=== PATIENT | male | born 1935 | race Caucasian/White ===

== ENCOUNTER 2018-03-14 16:06 | Inpatient (IN) ==
[2018-03-14] MEDS ORDERED: ONDANSETRON 4 MG/2 ML VIAL IV STA (17:06)
[2018-03-14] MEDS ORDERED: MECLIZINE 25 MG TABLET PO STA (17:06)
[2018-03-14] MEDS ORDERED: SODIUM CHLORIDE 0.9% 500 ML IV STA (17:06)
[2018-03-14] MEDS ORDERED: methylPREDNISolone SOD SUC 125 MG/2 ML VIAL IV STA (17:11)
[2018-03-14 17:20] LABS: Basophils % 0.2 % (0.0-0.8); Eosinophils % 0.1 % (0.00-10.9); Hematocrit 36.6 VOL% (42.0-52.0); Hemoglobin 11.9 GM/DL (14.0-18.0); Immature Granulocytes % 3.4 %; Immature Granulocytes Absolute 0.39 #; Lymphocytes # 0.9 10*3/uL (1.4-4.0); Lymphocytes % 7.7 % (21.2-54.2); Mean Corpuscular HGB Conc 32.5 GM/DL (32-36); Mean Corpuscular Hemoglobin 28 PG (27-34); Mean Corpuscular Volume 87.1 FL (87-102); Mean Platelet Volume 9.5 FL (9.6-12.0); Monocytes # 0.9 10*3/uL (0.11-0.8); Monocytes % 7.5 % (1.7-12.7); Neutrophils # 9.3 10*3/uL (1.4-7.4); Neutrophils % 81.1 % (38.7-73.9); Platelet Count 399 T/CUMM (130-400); Red Cell Distribution Width 14.7 % (9.3-17.3); White Blood Count 11.5 T/CUMM (4-12)
[2018-03-14 17:36] LABS: Alanine Aminotransferase 25 U/L (16-61); Albumin 2.5 G/DL (3.4-5.0); Alkaline Phosphatase 91 U/L (45-117); Aspartate Amino Transferase 33 U/L (0-37); Blood Urea Nitrogen 39 MG/DL (7-18); Calcium 13.6 MG/DL (8.5-10.1); Glucose 111 MG/DL (74-106); Osmolality,Calculated 266.1 MOS/KG (273-304); Potassium 4.9 MMOL/L (3.5-5.1); Sodium 128 MMOL/L (136-145); Total Protein 6.6 G/DL (6.4-8.3)
[2018-03-14 18:05] LABS: Apearance,Urine Slightly Hazy (Clear); Bilirubin,Urine Negative (Negative); Blood, Urine Negative (Negative); Glucose,Urine (UA) 50 mg/dL (Negative); Hyaline Casts,Urine 5 /LPF (0-3); Ketones,Urine Negative (Negative); Mucus,Urine Occasional /LPF (Occasional); Nitrite,Urine Negative (Negative); Protein,Urine 100 MG/DL; RBC,Urine 9 /HPF (0-4); Squamous Epithelial Cell,Urine Occasional /HPF (0-10); Urine Color Yellow (Yellow); Urine Specific Gravity 1.012 (1.001-1.035); Urine Urobilinogen < 2.0 EU/DL (0.2-1.0); WBC,Urine 12 /HPF (0-6)
[2018-03-14 18:32] LABS: Sedimentation Rate-Westergren 51 MM/HR (0-20)
[2018-03-14] MEDS ORDERED: ACETAMINOPHEN 325 MG TABLET PO PRN (19:57)
[2018-03-14] MEDS: SODIUM CHLORIDE 0.9% 1,000 ML IV SCH (21:13)
[2018-03-14] MEDS: ASPIRIN EC 81 MG TABLET PO SCH (21:13)
[2018-03-14] MEDS: predniSONE 1 MG TABLET PO SCH (21:14)
[2018-03-14] MEDS: ENOXAPARIN 40 MG/0.4 ML SYRINGE SUBCUT SCH (21:14)
[2018-03-15 04:25] LABS: Basophils % 0.1 % (0.0-0.8); Hematocrit 34.2 VOL% (42.0-52.0); Immature Granulocytes % 2.1 %; Immature Granulocytes Absolute 0.22 #; Lymphocytes # 0.6 10*3/uL (1.4-4.0); Lymphocytes % 5.9 % (21.2-54.2); Mean Corpuscular HGB Conc 32.2 GM/DL (32-36); Mean Corpuscular Hemoglobin 28 PG (27-34); Mean Corpuscular Volume 86.8 FL (87-102); Mean Platelet Volume 9.4 FL (9.6-12.0); Monocytes # 0.3 10*3/uL (0.11-0.8); Monocytes % 2.8 % (1.7-12.7); Neutrophils # 9.2 10*3/uL (1.4-7.4); Neutrophils % 89.1 % (38.7-73.9); Platelet Count 335 T/CUMM (130-400); Red Blood Count 3.94 MC/CUMM (3.8-5.5); Red Cell Distribution Width 14.6 % (9.3-17.3); White Blood Count 10.4 T/CUMM (4-12)
[2018-03-15 04:54] LABS: Calcium 12.1 MG/DL (8.5-10.1); Osmolality,Calculated 271.7 MOS/KG (273-304); Potassium 5.2 MMOL/L (3.5-5.1)
[2018-03-15] MEDS: LEVOTHYROXINE 75 MCG TABLET PO SCH (09:07)
[2018-03-15] MEDS: FINASTERIDE 5 MG TABLET PO SCH (09:07)
[2018-03-15] MEDS: predniSONE 1 MG TABLET PO SCH ×2 (09:07→20:47)
[2018-03-15] MEDS: PANTOPRAZOLE 40 MG TABLET PO SCH (09:07)
[2018-03-15] MEDS: MULTIVITAMIN (OCUVITE) TABLET PO SCH (09:09)
[2018-03-15] MEDS: SODIUM CHLORIDE 0.9% 1,000 ML IV SCH ×3 (11:27→23:50)
[2018-03-15] MEDS ORDERED: ZOLEDRONIC ACID 4 MG in PREMIX 1 EACH IV ONE (14:55)
[2018-03-15] MEDS: ASPIRIN EC 81 MG TABLET PO SCH (20:47)
[2018-03-15] MEDS: BENAZEPRIL 10 MG TABLET PO SCH (20:47)
[2018-03-15] MEDS: amLODIPine 2.5 MG TABLET PO SCH (20:47)
[2018-03-15] MEDS: CIPROFLOXACIN 500 MG TABLET PO SCH (20:48)
[2018-03-15] MEDS: ENOXAPARIN 40 MG/0.4 ML SYRINGE SUBCUT SCH (20:48)
[2018-03-16] MEDS: SODIUM CHLORIDE 0.9% 1,000 ML IV SCH ×4 (04:34→22:27)
[2018-03-16 08:13] LABS: Basophils % 0.1 % (0.0-0.8); Eosinophils % 0.3 % (0.00-10.9); Hematocrit 33.6 VOL% (42.0-52.0); Hemoglobin 11.1 GM/DL (14.0-18.0); Immature Granulocytes % 2.6 %; Immature Granulocytes Absolute 0.24 #; Lymphocytes # 0.6 10*3/uL (1.4-4.0); Lymphocytes % 6.7 % (21.2-54.2); Mean Corpuscular Hemoglobin 29 PG (27-34); Mean Corpuscular Volume 86.8 FL (87-102); Mean Platelet Volume 9.3 FL (9.6-12.0); Monocytes # 0.6 10*3/uL (0.11-0.8); Monocytes % 6.4 % (1.7-12.7); Neutrophils # 7.8 10*3/uL (1.4-7.4); Neutrophils % 83.9 % (38.7-73.9); Platelet Count 326 T/CUMM (130-400); Red Blood Count 3.87 MC/CUMM (3.8-5.5); Red Cell Distribution Width 14.9 % (9.3-17.3); White Blood Count 9.3 T/CUMM (4-12)
[2018-03-16 08:40] LABS: Calcium 10.9 MG/DL (8.5-10.1); Osmolality,Calculated 276.2 MOS/KG (273-304); Potassium 4.6 MMOL/L (3.5-5.1)
[2018-03-16] MEDS: predniSONE 1 MG TABLET PO SCH ×2 (08:41→20:44)
[2018-03-16] MEDS: CIPROFLOXACIN 500 MG TABLET PO SCH ×2 (08:42→20:44)
[2018-03-16] MEDS: MULTIVITAMIN (OCUVITE) TABLET PO SCH (08:42)
[2018-03-16] MEDS: LEVOTHYROXINE 75 MCG TABLET PO SCH (08:42)
[2018-03-16] MEDS: PANTOPRAZOLE 40 MG TABLET PO SCH (08:42)
[2018-03-16] MEDS: FINASTERIDE 5 MG TABLET PO SCH (08:42)
[2018-03-16 10:32] LABS: Parathyroid Hormone Intact 7.7 PG/ML (18.4-80.1)
[2018-03-16] MEDS: BISOPROLOL/HCTZ 5-6.25 MG TABLET PO SCH (16:49)
[2018-03-16] MEDS: ASPIRIN EC 81 MG TABLET PO SCH (20:44)
[2018-03-16] MEDS: amLODIPine 2.5 MG TABLET PO SCH (20:44)
[2018-03-16] MEDS: BENAZEPRIL 10 MG TABLET PO SCH (20:44)
[2018-03-16] MEDS: ENOXAPARIN 40 MG/0.4 ML SYRINGE SUBCUT SCH (20:44)
[2018-03-16] MEDS: POLYETHYLENE GLYCOL POWDER 17 GM PACK PO PRN (22:57)
[2018-03-17] MEDS: SODIUM CHLORIDE 0.9% 1,000 ML IV SCH ×2 (06:32→15:44)
[2018-03-17] MEDS: MULTIVITAMIN (OCUVITE) TABLET PO SCH (09:37)
[2018-03-17] MEDS: CIPROFLOXACIN 500 MG TABLET PO SCH ×2 (09:37→20:52)
[2018-03-17] MEDS: predniSONE 1 MG TABLET PO SCH ×2 (09:38→20:52)
[2018-03-17] MEDS: PANTOPRAZOLE 40 MG TABLET PO SCH (09:39)
[2018-03-17] MEDS: BISOPROLOL/HCTZ 5-6.25 MG TABLET PO SCH (09:39)
[2018-03-17] MEDS: FINASTERIDE 5 MG TABLET PO SCH (09:39)
[2018-03-17] MEDS: LEVOTHYROXINE 75 MCG TABLET PO SCH (09:39)
[2018-03-17 10:43] LABS: Calcium 9.7 MG/DL (8.5-10.1); Osmolality,Calculated 276.2 MOS/KG (273-304); Potassium 4.3 MMOL/L (3.5-5.1)
[2018-03-17] MEDS: ASPIRIN EC 81 MG TABLET PO SCH (20:52)
[2018-03-17] MEDS: amLODIPine 2.5 MG TABLET PO SCH (20:52)
[2018-03-17] MEDS: BENAZEPRIL 10 MG TABLET PO SCH (20:52)
[2018-03-17] MEDS: ENOXAPARIN 40 MG/0.4 ML SYRINGE SUBCUT SCH (20:52)
[2018-03-18] MEDS: SODIUM CHLORIDE 0.9% 1,000 ML IV SCH ×2 (05:12→15:56)
[2018-03-18 06:03] LABS: Osmolality,Calculated 275.2 MOS/KG (273-304); Potassium 4.5 MMOL/L (3.5-5.1)
[2018-03-18 06:55] LABS: Cancer Antigen 19-9 24.5 U/ML (0-37); Carcinoembryonic Antigen 1.4 NG/ML (0.0-5.0)
[2018-03-18] MEDS: BISOPROLOL/HCTZ 5-6.25 MG TABLET PO SCH (13:46)
[2018-03-18] MEDS: FINASTERIDE 5 MG TABLET PO SCH (14:31)
[2018-03-18] MEDS: POLYETHYLENE GLYCOL POWDER 17 GM PACK PO PRN (14:31)
[2018-03-18] MEDS: CIPROFLOXACIN 500 MG TABLET PO SCH ×2 (14:31→20:56)
[2018-03-18] MEDS: PANTOPRAZOLE 40 MG TABLET PO SCH (14:32)
[2018-03-18] MEDS: predniSONE 1 MG TABLET PO SCH ×2 (14:32→20:56)
[2018-03-18] MEDS: LEVOTHYROXINE 75 MCG TABLET PO SCH (14:32)
[2018-03-18] MEDS: MULTIVITAMIN (OCUVITE) TABLET PO SCH (14:32)
[2018-03-18] MEDS: ASPIRIN EC 81 MG TABLET PO SCH (20:56)
[2018-03-18] MEDS: amLODIPine 2.5 MG TABLET PO SCH (20:56)
[2018-03-18] MEDS: BENAZEPRIL 10 MG TABLET PO SCH (20:56)
[2018-03-18] MEDS: ENOXAPARIN 40 MG/0.4 ML SYRINGE SUBCUT SCH (20:58)
[2018-03-19] MEDS: SODIUM CHLORIDE 0.9% 1,000 ML IV SCH ×2 (03:48→10:30)
[2018-03-19] MEDS: ALBUTEROL/IPRATROPIUM 3 ML NEB RESP TX PRN ×3 (06:42→20:20)
[2018-03-19] MEDS ORDERED: BISACODYL 10 MG SUPP RECTAL ONE (07:59)
[2018-03-19] MEDS: MULTIVITAMIN (OCUVITE) TABLET PO SCH (10:10)
[2018-03-19] MEDS: POLYETHYLENE GLYCOL POWDER 17 GM PACK PO PRN (10:10)
[2018-03-19] MEDS: predniSONE 1 MG TABLET PO SCH ×2 (10:10→21:42)
[2018-03-19] MEDS: CIPROFLOXACIN 500 MG TABLET PO SCH ×2 (10:10→21:42)
[2018-03-19] MEDS: LEVOTHYROXINE 75 MCG TABLET PO SCH (10:10)
[2018-03-19] MEDS: PANTOPRAZOLE 40 MG TABLET PO SCH (10:11)
[2018-03-19] MEDS: FINASTERIDE 5 MG TABLET PO SCH (10:11)
[2018-03-19] MEDS: amLODIPine 2.5 MG TABLET PO SCH (21:42)
[2018-03-19] MEDS: ENOXAPARIN 40 MG/0.4 ML SYRINGE SUBCUT SCH (21:42)
[2018-03-19] MEDS: BENAZEPRIL 10 MG TABLET PO SCH (21:42)
[2018-03-19] MEDS: ASPIRIN EC 81 MG TABLET PO SCH (21:42)
[2018-03-20 04:00] LABS: Basophils % 0.3 % (0.0-0.8); Eosinophils % 0.4 % (0.00-10.9); Hematocrit 33.1 VOL% (42.0-52.0); Hemoglobin 10.6 GM/DL (14.0-18.0); Immature Granulocytes Absolute 0.44 #; Lymphocytes # 0.6 10*3/uL (1.4-4.0); Lymphocytes % 5.7 % (21.2-54.2); Mean Corpuscular Hemoglobin 28 PG (27-34); Mean Corpuscular Volume 87.8 FL (87-102); Mean Platelet Volume 9.8 FL (9.6-12.0); Monocytes # 0.7 10*3/uL (0.11-0.8); Monocytes % 6.4 % (1.7-12.7); Neutrophils # 9.2 10*3/uL (1.4-7.4); Neutrophils % 83.2 % (38.7-73.9); Platelet Count 307 T/CUMM (130-400); Red Blood Count 3.77 MC/CUMM (3.8-5.5); Red Cell Distribution Width 15.7 % (9.3-17.3)
[2018-03-20 04:24] LABS: Calcium 8.9 MG/DL (8.5-10.1); Osmolality,Calculated 277.1 MOS/KG (273-304); Potassium 4.6 MMOL/L (3.5-5.1)
[2018-03-20] MEDS: predniSONE 1 MG TABLET PO SCH ×2 (08:51→21:35)
[2018-03-20] MEDS: LEVOTHYROXINE 75 MCG TABLET PO SCH (08:52)
[2018-03-20] MEDS: MULTIVITAMIN (OCUVITE) TABLET PO SCH (08:52)
[2018-03-20] MEDS: FINASTERIDE 5 MG TABLET PO SCH (08:52)
[2018-03-20] MEDS: PANTOPRAZOLE 40 MG TABLET PO SCH (08:52)
[2018-03-20] MEDS: CIPROFLOXACIN 500 MG TABLET PO SCH ×2 (08:52→21:35)
[2018-03-20] MEDS ORDERED: SODIUM CHLORIDE 0.9% 500 ML IV ONE ×2 (14:19→20:00)
[2018-03-20] MEDS: ONDANSETRON 4 MG/2 ML VIAL IV PRN ×2 (16:44→20:14)
[2018-03-20] MEDS: SODIUM CHLORIDE 0.9% 1,000 ML IV SCH (17:35)
[2018-03-20] MEDS: BENAZEPRIL 10 MG TABLET PO SCH (21:35)
[2018-03-20] MEDS: ASPIRIN EC 81 MG TABLET PO SCH (21:35)
[2018-03-20] MEDS: amLODIPine 2.5 MG TABLET PO SCH (21:37)
[2018-03-20] MEDS: ENOXAPARIN 40 MG/0.4 ML SYRINGE SUBCUT SCH (21:37)
[2018-03-21] MEDS: SODIUM CHLORIDE 0.9% 1,000 ML IV SCH ×6 (02:06→22:24)
[2018-03-21] MEDS: ONDANSETRON 4 MG/2 ML VIAL IV PRN ×2 (05:00→09:44)
[2018-03-21] MEDS: MULTIVITAMIN (OCUVITE) TABLET PO SCH (09:44)
[2018-03-21] MEDS: CIPROFLOXACIN 500 MG TABLET PO SCH (09:44)
[2018-03-21] MEDS: LEVOTHYROXINE 75 MCG TABLET PO SCH (09:44)
[2018-03-21] MEDS: predniSONE 1 MG TABLET PO SCH ×2 (09:44→22:23)
[2018-03-21] MEDS: PANTOPRAZOLE 40 MG TABLET PO SCH (09:45)
[2018-03-21] MEDS: FINASTERIDE 5 MG TABLET PO SCH (09:45)
[2018-03-21] MEDS ORDERED: ONDANSETRON 4 MG/2 ML VIAL IV PRN (10:04)
[2018-03-21] MEDS: ALBUTEROL/IPRATROPIUM 3 ML NEB RESP TX PRN (12:05)
[2018-03-21] MEDS ORDERED: SODIUM CHLORIDE 0.9% 1,000 ML IV ONE ×2 (16:23→17:48)
[2018-03-21 17:23] LABS: Lactic Acid 5.4 MMOL/L (0.4-2.0)
[2018-03-21] MEDS ORDERED: SODIUM CHLORIDE 0.9% 2,500 ML IV ONE (17:52)
[2018-03-21] MEDS: HYDROCORTISONE 100 MG VIAL IV SCH (18:24)
[2018-03-21] MEDS: PIPERACILLIN/TAZOBACTAM 3,375 MG in SODIUM CHLORIDE 0.9% 100 ML IV SCH (18:24)
[2018-03-21 21:47] LABS: Lactic Acid 5.5 MMOL/L (0.4-2.0)
[2018-03-21] MEDS: ASPIRIN EC 81 MG TABLET PO SCH (22:22)
[2018-03-21] MEDS: ENOXAPARIN 40 MG/0.4 ML SYRINGE SUBCUT SCH (22:22)
[2018-03-21] MEDS: CIPROFLOXACIN INJ 400 MG in PREMIX 1 EACH IV SCH (23:11)
[2018-03-22 01:17] LABS: Basophils # 0.1 10*3/uL (0.0-0.2); Basophils % 0.5 % (0.0-0.8); Eosinophils % 0.1 % (0.00-10.9); Hematocrit 33.8 VOL% (42.0-52.0); Hemoglobin 10.9 GM/DL (14.0-18.0); Immature Granulocytes % 10.9 %; Immature Granulocytes Absolute 2.66 #; Lymphocytes # 2.5 10*3/uL (1.4-4.0); Lymphocytes % 10.4 % (21.2-54.2); Mean Corpuscular HGB Conc 32.2 GM/DL (32-36); Mean Corpuscular Hemoglobin 29 PG (27-34); Mean Corpuscular Volume 88.5 FL (87-102); Mean Platelet Volume 9.7 FL (9.6-12.0); Monocytes # 0.8 10*3/uL (0.11-0.8); Monocytes % 3.2 % (1.7-12.7); NRBC # 0.24 10*3/uL; Neutrophils # 18.2 10*3/uL (1.4-7.4); Neutrophils % 74.9 % (38.7-73.9); Platelet Count 314 T/CUMM (130-400); Red Blood Count 3.82 MC/CUMM (3.8-5.5); Red Cell Distribution Width 16.5 % (9.3-17.3); White Blood Count 24.3 T/CUMM (4-12)
[2018-03-22 01:25] LABS: Albumin 1.6 G/DL (3.4-5.0); Bilirubin,Total 0.5 MG/DL (0.2-1.0); Calcium 8.4 MG/DL (8.5-10.1); Total Protein 4.9 G/DL (6.4-8.3)
[2018-03-22 01:26] LABS: Osmolality,Calculated 282.1 MOS/KG (273-304); Potassium 5.1 MMOL/L (3.5-5.1)
[2018-03-22 01:35] LABS: Lactic Acid 4.9 MMOL/L (0.4-2.0)
[2018-03-22] MEDS: HYDROCORTISONE 100 MG VIAL IV SCH ×3 (01:55→17:16)
[2018-03-22] MEDS: PIPERACILLIN/TAZOBACTAM 3,375 MG in SODIUM CHLORIDE 0.9% 100 ML IV SCH ×3 (01:59→17:16)
[2018-03-22] MEDS ORDERED: ALBUMIN 25% 50 GM in PREMIX 1 EACH IV ONE ×2 (02:56→09:00)
[2018-03-22] MEDS ORDERED: NOREPINEPHRINE 8 MG in SODIUM CHLORIDE 0.9% 242 ML IV PRN (02:57)
[2018-03-22 03:06] LABS: Band Neutrophils 1 % (0-10); Burr Cells Few; Lymphocytes 5 % (20-55); Nucleated Red Blood Cells 2 (0-5); Platelet Estimate Adequate; Polychromasia Few; Segmented Neutrophils 90 % (50-85); Total Cells Counted 100
[2018-03-22 03:07] LABS: Tear Drop Cells Slight
[2018-03-22] MEDS ORDERED: VANCOMYCIN INJ 1,750 MG in SODIUM CHLORIDE 0.9% 500 ML IV SCH (04:00)
[2018-03-22 04:23] LABS: ABG HCO3 13.6 MMOL/L (20-26); ABG Oxygen Saturation 94.6 % (95-100); ABG PCO2 28.1 MM HG (35-48); ABG PH 7.245 (7.35-7.45); ABG PO2 81.8 MM HG (80-95); ABG TCO2 11.2 MMOL/L (23-27)
[2018-03-22] MEDS: SODIUM CHLORIDE 0.9% 1,000 ML IV SCH (05:41)
[2018-03-22] MEDS ORDERED: SODIUM BICARB INJ 50 MEQ in SODIUM CHLORIDE 0.45% 1,000 ML IV SCH (08:00)
[2018-03-22] MEDS: MULTIVITAMIN (OCUVITE) TABLET PO SCH (09:05)
[2018-03-22] MEDS: predniSONE 1 MG TABLET PO SCH ×2 (09:05→21:51)
[2018-03-22] MEDS: LEVOTHYROXINE 75 MCG TABLET PO SCH (09:05)
[2018-03-22] MEDS: PANTOPRAZOLE 40 MG VIAL IV SCH (09:05)
[2018-03-22] MEDS: CIPROFLOXACIN INJ 400 MG in PREMIX 1 EACH IV SCH ×2 (09:12→21:52)
[2018-03-22] MEDS: FINASTERIDE 5 MG TABLET PO SCH (09:13)
[2018-03-22 13:43] LABS: Calcium 8.3 MG/DL (8.5-10.1)
[2018-03-22 13:44] LABS: Osmolality,Calculated 286.8 MOS/KG (273-304); Potassium 4.7 MMOL/L (3.5-5.1)
[2018-03-22] MEDS ORDERED: SODIUM BICARB INJ 100 MEQ in DEXTROSE 5% 1,000 ML IV SCH (14:00)
[2018-03-22] MEDS ORDERED: PHENOL 1.4% THROAT SPRAY 177 ML BOTTLE PO PRN (16:57)
[2018-03-22 17:50] LABS: ABG Oxygen Saturation 89.2 % (95-100); ABG PCO2 37.7 MM HG (35-48); ABG PO2 70.9 MM HG (80-95); ABG TCO2 10.9 MMOL/L (23-27)
[2018-03-22 17:53] LABS: ABG PH 7.086 (7.35-7.45)
[2018-03-22] MEDS: ALBUMIN 25% 25 GM in PREMIX 1 EACH IV SCH (17:55)
[2018-03-22] MEDS: IMMUNE GLOBULIN IV SCH (17:56)
[2018-03-22] MEDS: [UNRECOGNIZED DRUG - OTHER] IV SCH (17:56)
[2018-03-22] MEDS ORDERED: SODIUM BICARBONATE 50 MEQ/50 ML SYRINGE IV ONE ×2 (18:05→22:52)
[2018-03-22] MEDS ORDERED: SODIUM BICARBONATE 50 MEQ/50 ML SYRINGE IV STA (18:06)
[2018-03-22] MEDS ORDERED: SUCCINYLCHOLINE 200 MG/10 ML VIAL ONE (19:06)
[2018-03-22] MEDS ORDERED: PROPOFOL 1,000 MG/100 ML BOTTLE IV ONE (19:06)
[2018-03-22] MEDS ORDERED: PROPOFOL 200 MG/20 ML VIAL IV ONE (19:11)
[2018-03-22] MEDS ORDERED: SODIUM CHLORIDE 0.9% 500 ML IV ONE (19:17)
[2018-03-22] MEDS: PROPOFOL 1,000 MG/100 ML BOTTLE IV SCH ×2 (19:25→23:15)
[2018-03-22 20:47] LABS: Blood Urea Nitrogen 62 MG/DL (7-18); Calcium 7.8 MG/DL (8.5-10.1); Glucose 47 MG/DL (74-106); Sodium 138 MMOL/L (136-145)
[2018-03-22 20:48] LABS: Osmolality,Calculated 289.7 MOS/KG (273-304); Potassium 4.8 MMOL/L (3.5-5.1)
[2018-03-22 20:50] LABS: Lactic Acid 6.3 MMOL/L (0.4-2.0)
[2018-03-22 20:53] LABS: ABG Oxygen Saturation 98.1 % (95-100); ABG PCO2 38.8 MM HG (35-48); Allen Test Positive; Pt O2 Delivery Device Ventilator
[2018-03-22 20:55] LABS: ABG PH 7.075 (7.35-7.45)
[2018-03-22] MEDS: ASPIRIN EC 81 MG TABLET PO SCH (21:51)
[2018-03-22] MEDS: ENOXAPARIN 40 MG/0.4 ML SYRINGE SUBCUT SCH (21:51)
[2018-03-22] MEDS: PYRIDOSTIGMINE 60 MG TABLET PO SCH (21:51)
[2018-03-22 22:19] LABS: ABG HCO3 9.7 MMOL/L (20-26); ABG Oxygen Saturation 85.9 % (95-100); ABG PO2 64.8 MM HG (80-95); ABG TCO2 9.4 MMOL/L (23-27)
[2018-03-22 22:21] LABS: ABG PH 7.052 (7.35-7.45)
[2018-03-22] MEDS ORDERED: DEXTROSE 50% 25 GM/50 ML VIAL IV ONE (23:00)
[2018-03-22] MEDS: DEXTROSE 50% 25 GM/50 ML VIAL IV PRN (23:02)
[2018-03-22] MEDS: SODIUM BICARB INJ 150 MEQ in DEXTROSE 5% 850 ML IV SCH (23:24)
[2018-03-22] MEDS: fentaNYL INJ 1,250 MCG in SODIUM CHLORIDE 0.9% 225 ML IV PRN (23:27)
[2018-03-23] MEDS: PHENYLEPHRINE INJ 160 MG in SODIUM CHLORIDE 0.9% 234 ML IV PRN ×2 (00:09→15:01)
[2018-03-23] MEDS: HYDROCORTISONE 100 MG VIAL IV SCH ×3 (01:16→17:19)
[2018-03-23] MEDS: NOREPINEPHRINE 16 MG in SODIUM CHLORIDE 0.9% 234 ML IV PRN ×3 (01:26→21:30)
[2018-03-23 01:32] LABS: ABG Base Excess -23.4 MMOL/L (-2.5-2.5); ABG HCO3 7.9 MMOL/L (20-26); ABG Oxygen Saturation 99.3 % (95-100); ABG PCO2 26.1 MM HG (35-48); ABG TCO2 6.6 MMOL/L (23-27)
[2018-03-23 01:34] LABS: ABG PH 7.018 (7.35-7.45)
[2018-03-23] MEDS ORDERED: SODIUM BICARBONATE 50 MEQ/50 ML SYRINGE IV ONE ×2 (01:40→04:24)
[2018-03-23] MEDS: ALBUMIN 25% 25 GM in PREMIX 1 EACH IV SCH ×3 (02:08→17:20)
[2018-03-23] MEDS: PIPERACILLIN/TAZOBACTAM 3,375 MG in SODIUM CHLORIDE 0.9% 100 ML IV SCH ×3 (02:09→17:19)
[2018-03-23 04:19] LABS: ABG Base Excess -23.8 MMOL/L (-2.5-2.5); ABG HCO3 7.6 MMOL/L (20-26); ABG Oxygen Saturation 98.9 % (95-100); ABG PCO2 26.4 MM HG (35-48); ABG TCO2 6.4 MMOL/L (23-27)
[2018-03-23 04:30] LABS: Basophils # 0.1 10*3/uL (0.0-0.2); Basophils % 0.2 % (0.0-0.8); Eosinophils # 0.2 10*3/uL (0.0-0.87); Eosinophils % 0.5 % (0.00-10.9); Hematocrit 32.9 VOL% (42.0-52.0); Immature Granulocytes % 17.5 %; Immature Granulocytes Absolute 7.25 #; Lymphocytes % 21.8 % (21.2-54.2); Mean Corpuscular HGB Conc 30.4 GM/DL (32-36); Mean Corpuscular Hemoglobin 29 PG (27-34); Mean Platelet Volume 10.3 FL (9.6-12.0); Monocytes % 2.4 % (1.7-12.7); NRBC # 2.84 10*3/uL; Neutrophils # 23.8 10*3/uL (1.4-7.4); Neutrophils % 57.6 % (38.7-73.9); Platelet Count 218 T/CUMM (130-400); Red Cell Distribution Width 17.6 % (9.3-17.3)
[2018-03-23] MEDS: PROPOFOL 1,000 MG/100 ML BOTTLE IV SCH ×3 (04:42→17:20)
[2018-03-23 04:49] LABS: White Blood Count 41.4 T/CUMM (4-12)
[2018-03-23 04:55] LABS: Calcium 7.5 MG/DL (8.5-10.1); Osmolality,Calculated 290.8 MOS/KG (273-304); Potassium 5.1 MMOL/L (3.5-5.1)
[2018-03-23 04:58] LABS: Band Neutrophils 16 % (0-10); Eosinophils 1 % (0-10); Lymphocytes 14 % (20-55); Metamyelocytes 1 %; Myelocytes 1 %; Nucleated Red Blood Cells 12 (0-5); Segmented Neutrophils 63 % (50-85); Total Cells Counted 100
[2018-03-23 04:59] LABS: Atypical Lymphocytes Few; Hypochromasia Slight; Platelet Estimate Adequate
[2018-03-23 05:00] LABS: Burr Cells Slight; Ovalocytes Slight
[2018-03-23 05:03] LABS: Albumin 3.2 G/DL (3.4-5.0); Bilirubin,Total 1.4 MG/DL (0.2-1.0); Calcium 7.8 MG/DL (8.5-10.1); Total Protein 6.4 G/DL (6.4-8.3)
[2018-03-23] MEDS: DEXTROSE 50% 25 GM/50 ML VIAL IV PRN (07:30)
[2018-03-23 07:36] LABS: HIV Antigen/Antibody Result Nonreactive (Nonreactive)
[2018-03-23 09:04] LABS: ABG Base Excess -22.1 MMOL/L (-2.5-2.5); ABG HCO3 8.5 MMOL/L (20-26); ABG Oxygen Saturation 96.2 % (95-100); ABG PCO2 33.7 MM HG (35-48); ABG TCO2 8.2 MMOL/L (23-27)
[2018-03-23 09:05] LABS: ABG PH 7.001 (7.35-7.45)
[2018-03-23] MEDS: CIPROFLOXACIN INJ 400 MG in PREMIX 1 EACH IV SCH ×2 (09:52→21:14)
[2018-03-23] MEDS: PANTOPRAZOLE 40 MG VIAL IV SCH (09:52)
[2018-03-23] MEDS: predniSONE 1 MG TABLET PO SCH ×2 (09:53→21:13)
[2018-03-23] MEDS: LEVOTHYROXINE 75 MCG TABLET PO SCH (09:53)
[2018-03-23] MEDS: PYRIDOSTIGMINE 60 MG TABLET PO SCH ×3 (09:53→21:13)
[2018-03-23] MEDS: MULTIVITAMIN (OCUVITE) TABLET PO SCH (09:53)
[2018-03-23] MEDS: [UNRECOGNIZED DRUG - OTHER] IV SCH (09:54)
[2018-03-23] MEDS: FINASTERIDE 5 MG TABLET PO SCH (09:54)
[2018-03-23] MEDS: IMMUNE GLOBULIN IV SCH (09:54)
[2018-03-23] MEDS: SODIUM BICARB INJ 150 MEQ in DEXTROSE 5% 850 ML IV SCH ×4 (09:55→22:41)
[2018-03-23] MEDS ORDERED: AMIODARONE INJ 450 MG in DEXTROSE 5% 241 ML IV SCH ×2 (15:00→21:00)
[2018-03-23] MEDS: LINEZOLID INJ 600 MG in PREMIX 1 EACH IV SCH (15:23)
[2018-03-23 15:50] LABS: Albumin 2.8 G/DL (3.4-5.0); Bilirubin,Total 1.6 MG/DL (0.2-1.0); Potassium 4.8 MMOL/L (3.5-5.1); Total Protein 6.4 G/DL (6.4-8.3)
[2018-03-23] MEDS: fentaNYL INJ 1,250 MCG in SODIUM CHLORIDE 0.9% 225 ML IV PRN (19:26)
[2018-03-23] MEDS: ENOXAPARIN 40 MG/0.4 ML SYRINGE SUBCUT SCH (22:33)
[2018-03-23] MEDS: ASPIRIN EC 81 MG TABLET PO SCH (22:33)
[2018-03-24] MEDS: HYDROCORTISONE 100 MG VIAL IV SCH ×2 (01:32→09:14)
[2018-03-24] MEDS: ALBUMIN 25% 25 GM in PREMIX 1 EACH IV SCH ×2 (01:43→10:51)
[2018-03-24] MEDS: PIPERACILLIN/TAZOBACTAM 3,375 MG in SODIUM CHLORIDE 0.9% 100 ML IV SCH (01:43)
[2018-03-24] MEDS: PROPOFOL 1,000 MG/100 ML BOTTLE IV SCH (01:53)
[2018-03-24] MEDS: LINEZOLID INJ 600 MG in PREMIX 1 EACH IV SCH (03:04)
[2018-03-24] MEDS: NOREPINEPHRINE 16 MG in SODIUM CHLORIDE 0.9% 234 ML IV PRN ×2 (04:15→10:50)
[2018-03-24 05:00] LABS: ABG Base Excess -18.6 MMOL/L (-2.5-2.5); ABG HCO3 10.5 MMOL/L (20-26); ABG Oxygen Saturation 94.4 % (95-100); ABG PCO2 47.7 MM HG (35-48); ABG TCO2 11.9 MMOL/L (23-27)
[2018-03-24 05:03] LABS: Basophils # 0.2 10*3/uL (0.0-0.2); Basophils % 0.5 % (0.0-0.8); Eosinophils # 0.2 10*3/uL (0.0-0.87); Eosinophils % 0.6 % (0.00-10.9); Hematocrit 27.7 VOL% (42.0-52.0); Hemoglobin 8.7 GM/DL (14.0-18.0); Immature Granulocytes % 14.7 %; Immature Granulocytes Absolute 5.18 #; Lymphocytes # 7.2 10*3/uL (1.4-4.0); Lymphocytes % 20.4 % (21.2-54.2); Mean Corpuscular HGB Conc 31.4 GM/DL (32-36); Mean Corpuscular Hemoglobin 30 PG (27-34); Mean Corpuscular Volume 93.9 FL (87-102); Monocytes # 1.4 10*3/uL (0.11-0.8); NRBC # 1.48 10*3/uL; Neutrophils # 21.1 10*3/uL (1.4-7.4); Neutrophils % 59.8 % (38.7-73.9); Platelet Count 83 T/CUMM (130-400); Red Blood Count 2.95 MC/CUMM (3.8-5.5); White Blood Count 35.2 T/CUMM (4-12)
[2018-03-24] MEDS: SODIUM BICARB INJ 150 MEQ in DEXTROSE 5% 850 ML IV SCH (05:10)
[2018-03-24] MEDS: fentaNYL INJ 1,250 MCG in SODIUM CHLORIDE 0.9% 225 ML IV PRN (05:12)
[2018-03-24 05:42] LABS: Bilirubin,Total 2.4 MG/DL (0.2-1.0); Calcium 6.4 MG/DL (8.5-10.1); Potassium 4.8 MMOL/L (3.5-5.1)
[2018-03-24 06:12] LABS: Band Neutrophils 14 % (0-10); Eosinophils 1 % (0-10); Lymphocytes 6 % (20-55); Nucleated Red Blood Cells 3 (0-5); Segmented Neutrophils 75 % (50-85); Total Cells Counted 100
[2018-03-24 06:13] LABS: Hypochromasia Slight; Ovalocytes Slight; Platelet Estimate Decreased
[2018-03-24] MEDS ORDERED: FUROSEMIDE 40 MG/4 ML VIAL IV ONE (07:16)
[2018-03-24] MEDS: [UNRECOGNIZED DRUG - OTHER] IV SCH (07:59)
[2018-03-24] MEDS: IMMUNE GLOBULIN IV SCH (07:59)
[2018-03-24] MEDS: PHENYLEPHRINE INJ 160 MG in SODIUM CHLORIDE 0.9% 234 ML IV PRN (08:01)
[2018-03-24] MEDS: PANTOPRAZOLE 40 MG VIAL IV SCH (09:14)
[2018-03-24] MEDS: LEVOTHYROXINE 75 MCG TABLET PO SCH (09:15)
[2018-03-24] MEDS: predniSONE 1 MG TABLET PO SCH (09:15)
[2018-03-24] MEDS: FINASTERIDE 5 MG TABLET PO SCH (09:15)
[2018-03-24] MEDS: MULTIVITAMIN (OCUVITE) TABLET PO SCH (09:15)
[2018-03-24] MEDS: PYRIDOSTIGMINE 60 MG TABLET PO SCH (09:16)
[2018-03-24] MEDS: CIPROFLOXACIN INJ 400 MG in PREMIX 1 EACH IV SCH (09:16)
[2018-03-24 11:29] LABS: Lactic Acid 23.4 MMOL/L (0.4-2.0)
[2018-03-24 12:01] VITALS: BP 106/58
[2018-03-24] MEDS ORDERED: PIPERACILLIN/TAZOBACTAM 3,375 MG in SODIUM CHLORIDE 0.9% 100 ML IV SCH (14:00)
[2018-03-25] MEDS ORDERED: CIPROFLOXACIN INJ 400 MG in PREMIX 1 EACH IV SCH (09:00)
== END 2018-03-24 11:45 | disposition expired | DRG 823 ==
LOC: EDBD → EDUNIT# → N.ED 16:06 → SUATTDRO 17:52 → N.EDINP 17:52 → N.2W 03-15 11:27 → N.4E 03-15 14:03 → N.CC 03-21 17:40
PROVIDERS: ADMIT Internal Medicine; ATTEND Internal Medicine